=== PATIENT | female | born 1960 | race Caucasian/White ===

== ENCOUNTER → 2023-10-31 02:12 | Outpatient (CLI) | payer BC, SELFPAY ==
--- NOTE | 2023-10-31 | DI.MAMMO_ITS ---
Exam(s) MAMMO SCREENING EXAM: MAMMO SCREENING CLINICAL HISTORY: SCREENING MAMMO Z12.31,H/O LUMPECTOMIES (NOT FOR CA). TECHNIQUE: Bilateral full field digital CC and MLO mammographic images were obtained with 3D tomosyn thesis and utilizing computer aided detection (CAD). COMPARISON: Prior outside mammograms were reviewed. Patient has had prior biopsies, apparently negative malignancy. FINDINGS: There has been no significant change in the appearance and distribution of the fibroglandular tissue. However, the breasts of somewhat decreased in size. This patient has had significant weight loss s shan the most recent outside mammogram of 2021. The previously biopsied partially calcified nodule located medially in the left breast is unchanged f rom 2020. Another biopsy marker is seen slightly lateral of center in the left breast with no new fi ndings in this immediate vicinity. Another biopsy marker is seen in the upper-outer quadrant of the right breast, also without a new findings in the immediate vicinity. There are no obvious new spiculated masses nor new malignant appearing microcalcification groups. There is no significant new architectural distortion nor skin thickening-retraction. IMPRESSION: No radiographic evidence of malignancy. Stable benign findings. BI-RADS Category 2 - Benign Findings Breast Density - Category C - Heterogeneously dense Breast density Category C or D implies that the patient has dense breast tissue. Dense breast tissue can make it harder to find cancer on a mammogram. Dense breast tissue is also associated with an incr eased risk of breast cancer. This information about the result of the mammogram report was provided to the patient to raise their awareness. Use this report when you speak with the patient about their risks for breast cancer, which includes their family history. At that time, you may recommend additional screening tests (Ultrasoun d or MRI) as these tests may add significant information. A negative radiographic report should not delay biopsy if a dominant or clinically suspicious mass is present. Up to ten percent of cancers are not identified on mammography. A negative report may reinforce clinical impression. Adenosis and dense breasts may obscure an underlying neoplasm. False positive reports average 6 to 10%. Patient will receive a letter notifying them of these results.
== END ==
PROVIDERS: Visit Provider Family Medicine
DX: Z12.31 Encounter for screening mammogram for malignant neoplasm of breast (principal)
CPT/HCPCS: 77063; 77067

== ENCOUNTER 2024-09-27 13:58 | Outpatient (REF) | payer BC, SELFPAY ==
[2024-09-27 16:00] LABS: Anion Gap 7.9 mmol/L (3-11); BUN 14 mg/dL (7-18); CO2 31.1 mmol/L (21.0-32.0); Calcium 9.1 mg/dL (8.5-10.1); Calculated LDL 96 mg/dL (<100); Chloride 102 mmol/L (98-107); Cholesterol 170 mg/dL (<200); Estimated GFR 105.98 (mL/min/1.73m2); Glucose 91 mg/dL (74-106); HDL Cholesterol 61 mg/dL (>or=50); Potassium 4.1 mmol/L (3.5-5.1); Sodium 141 mmol/L (136-145); Triglyceride 67 mg/dL (<150)
[2024-09-28 09:50] LABS: HIV-1/2 Ag & Ab Screen Negative (Negative)
[2024-09-28 10:00] LABS: Hepatitis C Ab w Rflx HCV PCR Negative (Negative)
== END 2024-09-27 13:59 | disposition home or self-care (01) ==
LOC: NCHCN 13:58
PROVIDERS: PCP Family Medicine; Visit Provider Family Medicine
DX: Z13.220 Encounter for screening for lipoid disorders (principal); Z68.1 Body mass index [BMI] 19.9 or less, adult; Z11.4 Encounter for screening for human immunodeficiency virus [HIV]; Z11.59 Encounter for screening for other viral diseases
CPT/HCPCS: 80048; 80061; 86803; 87389

== ENCOUNTER 2024-10-31 01:31 | Outpatient (CLI) | payer BC, SELFPAY ==
--- NOTE | 2024-10-31 | DI.MAMMO_ITS ---
Exam(s) MAMMO SCREENING EXAM: MAMMO SCREENING CLINICAL HISTORY: SCREENING, Z12.31 TECHNIQUE: Bilateral full field digital CC and MLO mammographic images were obtained with 3D tomosynthesis and utilizing computer aided detection (CAD). COMPARISON: Comparison is made with prior examinations. FINDINGS: Masses/Architectural Distortion: No suspicious masses or areas of architectural distortion are present. The patient has had several biopsies bilaterally. There are biopsy clip seen in both breasts which appears stable in location. Microcalcifications: No suspicious pleomorphic-type are seen. Skin Thickening/Nipple Retraction: None. IMPRESSION: 1. No significant interval change with no specific features of malignancy noted. 2. Unless there is more urgent need, screening mammography is recommended, as per [employer] [employer] guidelines. BI-RADS Category 2 - Benign Findings Breast Density - Category C - The breast are heterogeneously dense, which may obscure small masses. Breast density Category C or D implies that the patient has dense breast tissue. Dense breast tissue can make it harder to find cancer on a mammogram. Dense breast tissue is also associated with an increased risk of breast cancer. This information about the result of the mammogram report was provided to the patient to raise their awareness. Use this report when you speak with the patient about their risks for breast cancer, which includes their family history. At that time, you may recommend additional screening tests (Ultrasound or MRI) as these tests may add significant information. A negative radiographic report should not delay biopsy if a dominant or clinically suspicious mass is present. Up to ten percent of cancers are not identified on mammography. A negative report may reinforce clinical impression. Adenosis and dense breasts may obscure an underlying neoplasm. False positive reports average 6 to 10%. Patient will receive a letter notifying them of these results.
== END 2024-10-31 01:51 ==
PROVIDERS: PCP Family Medicine; Visit Provider Family Medicine
DX: Z12.31 Encounter for screening mammogram for malignant neoplasm of breast (principal); R92.333 Mammographic heterogeneous density, bilateral breasts
CPT/HCPCS: 77063; 77067

== ENCOUNTER 2025-01-24 07:23 | Day surgery (SDC) | payer BC, SELFPAY ==
[2025-01-24 07:49] VITALS: BP 130/97; PULSE 86; RESP 16; TEMP 36.1; O2SAT 98
[2025-01-24] MEDS: Lactated Ringers 1,000 ML 80 ML IV (08:00)
--- NOTE | 2025-01-24 08:23 | W.ANESPRE ---
General Info Date of Service Date Performed: 01/24/25 Height: 5 ft 9 in Weight: 62.1 kg Body Mass Index (BMI): 20.2 Surgical Procedure: Operation Date: 01/24/25 09:05 Proposed Procedure Side Surgeon zeynep Jacobsen MD Meds Allergies and Home Medications Allergies Allergy/AdvReac Type Severity Reaction Status Date / Time meperidine (From Demerol) Allergy Severe Stop Verified 01/24/25 07:45 breathing sulfamethoxazole (From Allergy Severe rash Verified 01/24/25 07:45 Sulfamethoxazole-Trimethoprim) trimethoprim (From Allergy Severe rash Verified 01/24/25 07:45 Sulfamethoxazole-Trimethoprim) peanut Allergy Unknown unknown Verified 01/24/25 07:45 tree nut Allergy unknown Verified 01/24/25 07:45 diphenhydramine (From AdvReac Unknown rash Verified 01/24/25 07:45 Benadryl) cephalexin AdvReac rash Verified 01/24/25 07:45 Home Medication Medication Instructions Recorded calcium carbonate 600 mg PO DAILY 01/10/25 cholecalciferol (vitamin D3) 50 50 mcg PO DAILY 01/10/25 mcg (2,000 unit) capsule (Vitamin D3) montelukast 10 mg tablet 10 mg PO DAILY 01/10/25 vitamin B complex 1 cap PO DAILY 01/10/25 hydrocortisone 2.5 % topical cream 1 applic [place] BID #30 grams 01/24/25 with perineal applicator (Proctosol HC) Current Visit Medications: Current Medications Generic Name Dose Route Start Last Admin Trade Name Freq PRN Reason Stop Dose Admin Ringer's Solution 1,000 mls @ 80 mls/hr 01/24/25 06:00 IV 01/24/25 23:59 INFUSION CHARLINE IV Miscellaneous Supplies 1 each 01/24/25 06:00 Iv Access IV 01/24/25 23:59 DIRECTED CHARLINE Sodium Biphosphate/Sodium Phosphate 133 ml 01/24/25 06:00 Na Phosphate Enema-Adult 133 Ml Btl IL 01/24/25 23:59 DIRECTED PRN Sodium Chloride 0 ml 01/24/25 06:00 Normal Saline Flush 10 Ml Syr IV 01/24/25 23:59 PRN PRN Sodium Chloride 0 ml 01/24/25 06:00 Normal Saline 10 Ml Vial IJ 01/24/25 23:59 DIRECTED PRN Sterile Water 0 ml 01/24/25 06:00 Water,Injection,Sterile 10 Ml Vial IJ 01/24/25 23:59 DIRECTED PRN PFSH Medical History Medical History (Updated 01/24/25 @ 09:26 by Peggy Jacobsen MD) Anxiety Panic disorder Osteopenia Instability of left knee joint Seasonal allergies Surgical History Surgical History Hx of knee surgery ligament surgery Hx of breast surgery fibrous adenomas removed History of tonsillectomy Hx of colonoscopy History of Tobacco Smoking/Tobacco Use Status: Never Passive smoking exposure: Yes Alcohol Alcohol Intake: never Substance Use Substance use: Never Substance use type: does not use Vital Signs and Lab Results Vital Signs Most Recent Vital Signs in EMR: Most Recent Vital Signs Temp Pulse Resp BP Pulse Ox 36.1 C L 86 16 130/97 H 98 01/24/25 07:49 01/24/25 07:49 01/24/25 07:49 01/24/25 07:49 01/24/25 07:49 Anesthesia Assessment and Plan Anesthesia History Personal History: Other Family History: No Family History of Anesthesia Complications Exercise Tolerance Exercise Tolerance: Metabolic Equivalents>4 Pertinent Negatives Pertinent Negatives: No Symptoms of GERD, No Major Cardiovascular Symptoms or Complaints, No Major Pulmonary Symptoms or Complaints and No History of CVA/TIA Cardiac & Pulmonary Exam Cardiac Exam: Normal S1/S2 Heart Sounds Pulmonary Exam: Clear Bilateral Breath Sounds Implantable Cardiac Device Does patient have a Pacemaker or an ICD?: No Airway Exam Known Difficult Airway: No Mallampati Class: 2 Mouth Opening: Normal (> 3cm) Thyromental Distance: Greater than 3 cm Neck Range of Motion: Full ROM Neck Circumference: Normal Teeth Condition: Normal Dentition ASA Classification ASA Score: ASA 2 Emergency Case?: No NPO Status NPO Status: NPO Clears >2 hours, Solids >8 hours Anesthesia Plan Resuscitation Status: Full Code Anesthesia Technique: General Anesthesia Airway Planned: Natural Airway Monitors Used: Standard Monitors Preoperative Comments:: Occasional paresthesias right arm
--- NOTE | 2025-01-24 08:31 | W.PM.DSUDISC ---
Date of service: 01/24/25 Discharge Plan Disposition Patient Disposition: Home Condition: Stable Discharge Details Attending Provider: Peggy Jacobsen Primary Care Provider: Kacy Durant Home Meds and New Rx's Prescriptions: New hydrocortisone [Proctosol HC] 2.5 % cream with perineal applicator 1 applic AR BID Qty: 30 1RF Continued calcium carbonate 600 mg calcium (1,500 mg) tablet 600 mg PO DAILY montelukast 10 mg tablet 10 mg PO DAILY vitamin B complex Capsule 1 cap PO DAILY cholecalciferol (vitamin D3) [Vitamin D3] 50 mcg (2,000 unit) capsule 50 mcg PO DAILY Discontinued bisacodyl [Dulcolax (bisacodyl)] 5 mg tablet,delayed release (DR/EC) 5 mg PO ONCE Qty: 4 0RF Rx Instructions: Take per colonoscopy instructions provided by ordering providers office polyethylene glycol 3350 17 gram/dose powder 17 g PO ONCE Qty: 238 0RF Rx Instructions: Take per colonoscopy instructions provided by ordering providers office Discharge Instructions Additional Instructions: Normal colonoscopy. Zero polyps. Next screening colonoscopy will be due in 10 years. Activity:: Activity as Tolerated Diet:: As Tolerated Discharge Orders Discharge Orders: Discharge Order (Routine); Ordered 01/24/25 Ordered By: Peggy Jacobsen DS: Diagnosis Discharge Diagnosis (1) Screening for colorectal cancer: Status: Acute
--- NOTE | 2025-01-24 09:25 | W.COLOREPORT ---
Date of service: 01/24/25 Time of Service: 10:00 Colonoscopy Report Date of procedure: 01/24/25 Pre-op diagnosis general: Screening for colorectal cancer Post-op diagnosis procedure note: same Procedure: Colonoscopy Surgeon: Peggy Jacobsen Anesthesia Type: General:No Airway Estimated blood loss (mL): 0 Pathology: none sent Complications: None Indications: screening for colorectal cancer Prep: Miralax/Dulcolax (good) Procedure Description: Informed consent was obtained and the patient was taken to the procedure area. The patient was placed in left lateral decubitus position on the procedure table. Timeout was performed. Anesthesia was induced. A lubricated colonoscope was inserted through the anus and passed to the cecum. The cecum was identified by the ileocecal valve and the appendiceal orifice. The scope was then slowly withdrawn and the colonic and rectal mucosa examined. There are no colon or rectal mass lesions, polyps, AVMs. There is no inflammatory change. No diverticulosis was seen. The scope was retroflexed in the anorectal junction examined. Uncomplicated internal hemorrhoids present. Assessment and plan: Screening for colorectal cancer Normal colonoscopy. Next screening colonoscopy will be due in 10 years.
[2025-01-24 09:39] VITALS: BMI 20.2
[2025-01-24 10:03] VITALS: BP 112/81; PULSE 75; RESP 14; TEMP 36.8; O2SAT 97
[2025-01-24 10:32] VITALS: BP 128/80; PULSE 57; RESP 14; TEMP 36.2; O2SAT 100
--- NOTE | 2025-01-24 10:40 | W.ANESPOSTOP ---
Postoperative Evaluation Date, Time and Location Date Performed: 01/24/25 Time Performed: 10:03 Patient Location: Day Surgery Unit Vital Signs Most Recent Imported Vital Signs: Most Recent Vital Signs Temp Pulse Resp BP Pulse Ox 36.2 C L 57 L 14 128/80 100 01/24/25 10:32 01/24/25 10:32 01/24/25 10:32 01/24/25 10:32 01/24/25 10:32 Pain Score Most Recent Pain Score: Most Recent Pain Score Pain Level 0 01/24/25 10:32 Assessment Mental Status: Awake (Alert & Oriented to Patient Baseline) Airway and Respiratory Function: Patent airway with normal (patient baseline) respiratory exam Cardiovascular Function: Hemodynamically Stable Hydration Status: Adequately Hydrated Nausea & Vomiting: No Nausea or Vomiting Pain: Pt. Denies Any Pain Peripheral Nerve Block: Patient did not receive a nerve block
== END 2025-01-24 10:43 | disposition home or self-care (01) ==
PROVIDERS: PCP Family Medicine; Visit Provider Surgery
PROC: 0DJD8ZZ Inspection of Lower Intestinal Tract, Via Natural or Artificial Opening Endoscopic (ICD-10-PCS; CPT 45378; principal; 2025-01-24 09:00)
DX: Z12.11 Encounter for screening for malignant neoplasm of colon (principal); Z12.12 Encounter for screening for malignant neoplasm of rectum
CPT/HCPCS: 45378; J2704